=== PATIENT | male | born 1965 | race Caucasian/White ===

== ENCOUNTER → 2018-01-30 | Emergency (ER) | payer OTHER ==
[~2018-01-30] VITALS: Ht 175.3 cm; Wt 83.0 kg
[~2018-01-30] MED LIST: CHILDREN'S FLO5.9 ML; FENOFIBRATE145 MG; GLIPIZIDE ER10 MG; KOMBIGLYZE XR1 EAC1; NEXIUM40 M1; OMEGA 3 1,0001 EACH; PROTONIX40 MG PO; TOPROL XL50 M1; TRIUMEQ TABLET1 EACH; ZOVIRAX400 M1
== END | disposition home or self-care (01) ==
LOC: ER 20:05
DX: K52.9 Noninfective gastroenteritis and colitis, unspecified (principal); E86.0 Dehydration

== ENCOUNTER 2024-02-21 10:20 | Inpatient (IN) | payer OTHER ==
[~2024-02-21] VITALS: Ht 175.3 cm; Wt 90.7 kg
[2024-02-21] MEDS ORDERED: SYNTHROID50 MCG (11:02)
[2024-02-21] MEDS ORDERED: JENTADUETO 2.51 EAC2 (11:02)
[2024-02-21] MEDS ORDERED: ATORVASTATIN CA10 MG (11:02)
[2024-02-21] MEDS ORDERED: JARDIANCE25 MG (11:02)
[2024-02-21] MEDS ORDERED: NEURONTIN800 MG (11:02)
[2024-02-21] MEDS ORDERED: ALLERGY REL5 MG/5 ML (11:03)
[2024-02-21] MEDS ORDERED: VAZALORE81 MG (11:03)
[2024-02-21] MEDS ORDERED: LANTUS SOL100 UNIT/1 (11:03)
[2024-02-21] MEDS ORDERED: FEXMID7.5 MG (11:04)
[2024-02-21] MEDS ORDERED: ALLERGY RELIE15.8 ML (11:04)
[2024-02-21] MEDS ORDERED: LOSARTAN POTASS50 MG (11:04)
--- NOTE | 2024-02-21 11:04 | NUR ---
PACIENTE ALERTA Y ORIENTADO X3. EL MISMO REFIERE QUE DESDE EL IZZY DE ROSA PRESENTA DIARREAS. EN EL IZZY DE HOY REFIERE FADI PRESENTADO +10 DIARREAS Y TENER NAUSEAS.
[2024-02-21] MEDS ORDERED: FAMOTIDINE/PF 20 MG in 0.9 % SODIUM CHLORIDE 8 ML IV PUSH STA (11:19)
[2024-02-21] MEDS ORDERED: RINGERS SOLUTION,LACTATED 1,000 ML IV SCH (11:30)
[2024-02-21] MEDS ORDERED: DIPHENOXYLATE HCL/ATROPINE 1 UDTAB TABLET PO ONE (11:30)
[2024-02-21] MEDS ORDERED: ONDANSETRON HCL 2 MG/ML VIAL IV ONE ×2 (11:30→15:15)
[2024-02-21 11:42] LABS: MEAN CELL VOLUME 89.5 fL (80.0-100.00); MEAN CORPUSCULAR HGB CONC 34.1 g/dl (32.0-36.0); PLATELET COUNT 256 K/uL (150-450); RED BLOOD COUNT 6.38 M/uL (4.00-6.00); RED CELL DISTRIBUTION WIDTH 14.1 % (11.5-14.5)
[2024-02-21 11:43] LABS: MEAN CORPUSCULAR HEMOGLOBIN 30.4 pg (27.00-32.0)
[2024-02-21 11:44] LABS: HEMOGLOBIN 19.4 g/dL (13-16.00)
--- NOTE | 2024-02-21 11:53 | NUR ---
PTE ALERTA Y ORIENTADO X3. RN MORRIS EDUCA A PTE SOBRE TX MEDICO, EL MISMO REFIERE ENTENDER. SE KIT MUESTRAS DE LAB BAJO MEIDAS ASEPTICAS Y ADMINISTRA MEDICAMENTOS SANGEETA ORDEN MEDICA. SE HACE ENTREGA DE ENVASE PARA FECAL PENDIENTE.
[2024-02-21 12:22] LABS: ALBUMIN 4.8 gm/dL (3.4-5.0); BILIRUBIN TOTAL 1.56 mg/dL (0.3-1.2); CALCIUM 10.3 mg/dL (8.5-10.1); CREATININE SERUM 2.22 mg/dL (0.70-1.30); GFR 30.79; GLOBULINA 4.9 G/DL (2.4-3.5); POTASSIUM 3.97 mEq/L (3.5-5.1); TOTAL PROTEIN 9.7 gm/dL (6.4-8.2)
--- NOTE | 2024-02-21 15:00 | NUR ---
SE RECIBE PACIENTE MASCULINO ALERTA Y ORIENTADO X 3 ESFERAS EN CAMA EN COMPANIA DE FAMILIAR. PRESENTANDO BUEN PATRON RESPIRATORIO. RECIBIENDO IV'S R/L BAJANDO A 150ML/HR AREA DE VENOPUNCION FLOR DE EDEMA Y ERITEMA. PENDIENTE RESULTADOS DE LABORATORIOS. SE MANTIENE EN OBSERVACION POR CAMBIOS.
[2024-02-21 15:07] LABS: HEMATOCRIT 54.1 % (39.0-48.0); HEMOGLOBIN 18.3 g/dL (13-16.00); MEAN CELL VOLUME 87.9 fL (80.0-100.00); MEAN CORPUSCULAR HEMOGLOBIN 29.7 pg (27.00-32.0); MEAN CORPUSCULAR HGB CONC 33.7 g/dl (32.0-36.0); PLATELET COUNT 212 K/uL (150-450); RED BLOOD COUNT 6.16 M/uL (4.00-6.00); RED CELL DISTRIBUTION WIDTH 14.3 % (11.5-14.5)
[2024-02-21 15:39] LABS: CALCIUM 9.7 mg/dL (8.5-10.1); CREATININE SERUM 1.39 mg/dL (0.70-1.30); GFR 52.86; POTASSIUM 4.72 mEq/L (3.5-5.1)
[2024-02-21] MEDS ORDERED: METRONIDAZOLE/SODIUM CHLORIDE 100 ML IV SCH (19:02)
[2024-02-21] MEDS ORDERED: CEFTRIAXONE SODIUM 2,000 MG in 0.9 % SODIUM CHLORIDE 100 ML IV SCH (19:02)
[2024-02-21] MEDS ORDERED: FAMOTIDINE/PF 20 MG in 0.9 % SODIUM CHLORIDE 8 ML IV PUSH SCH (19:03)
[2024-02-21] MEDS ORDERED: DEXTROSE 50 % IN WATER 0.5 G/ML DISP.SYRIN IV PRN (19:15)
[2024-02-21] MEDS ORDERED: INSULIN LISPRO 1,000 UNIT/10 ML UNITS SUBCUTANEO PRN (19:15)
[2024-02-21] MEDS ORDERED: ACETAMINOPHEN 500 MG GEL..CAP PO PRN (19:15)
[2024-02-21] MEDS ORDERED: 0.9 % SODIUM CHLORIDE 1,000 ML IV SCH (19:15)
[2024-02-21] MEDS ORDERED: ONDANSETRON HCL 4 MG in 0.9 % SODIUM CHLORIDE 50 ML IV PRN (19:15)
[2024-02-21 21:27] LABS: INR 1.1; PARTIAL THROMBOPLASTIN TIME 35.1 SECONDS (22.0-34.0); PROTHROMBIN TIME 11.5 SECONDS (9.0-11.5)
[2024-02-21 21:30] LABS: MAGNESIUM 2.2 mg/dL (1.8-2.4)
[2024-02-21 21:32] LABS: C-REACTIVE PROTEIN 1.05 MG/DL (0.00-0.29)
[2024-02-21 21:43] LABS: PH,URINE 5.5 (5.0-8.0); URINE APPEARANCE Cloudy; URINE BILIRRUBIN Negative (NEGATIVE); URINE BLOOD Negative; URINE COLOR Dark Yellow; URINE LEUKOCYTE Negative; URINE NITRATE Negative; URINE PROTEIN 30 (NEGATIVE)
[2024-02-21 21:46] LABS: URINE BACTERIA 26.4 uL (0.0-1933); URINE EPITHELIAL CELLS 26.5 uL (0.0-38.8); URINE RBC 12.8 uL (0.0-20.8); URINE WBC 24.5 uL (0.0-23.2)
[2024-02-21 21:52] LABS: PROSTATIC SPECIFIC ANTIGEN 1.03 NG/ML (0.010-4.00); TSH 0.717 uIU/mL (0.358-3.74)
[2024-02-21 22:00] LABS: URINE GLUCOSE >=1000 MG/DL (NEGATIVE)
[2024-02-22] MEDS ORDERED: LEVOTHYROXINE SODIUM 50 MCG TABLET PO SCH (06:00)
[2024-02-22] MEDS ORDERED: ACETAMINOPHEN 500 MG GEL..CAP PO STA (08:21)
[2024-02-22] MEDS ORDERED: ACETAMINOPHEN 500 MG GEL..CAP PO PRN (08:30)
[2024-02-22] MEDS ORDERED: DEXTROSE 5 % AND 0.9 % NACL 1,000 ML IV SCH (08:30)
[2024-02-22] MEDS ORDERED: ATORVASTATIN CALCIUM 10 MG TABLET PO SCH (09:00)
[2024-02-22] MEDS ORDERED: CIPROFLOXACIN IN 5 % DEXTROSE 200 ML IV SCH (09:00)
[2024-02-22] MEDS ORDERED: LOSARTAN POTASSIUM 50 MG TABLET PO SCH (09:00)
[2024-02-22] MEDS ORDERED: METOPROLOL SUCCINATE 50 MG TAB.SR.24H PO SCH (09:00)
[2024-02-22] MEDS ORDERED: AZITHROMYCIN 500 MG in 0.9 % SODIUM CHLORIDE 250 ML IV SCH (09:00)
[2024-02-22] MEDS ORDERED: DEXTROSE 50 % IN WATER 0.5 G/ML VIAL IV PRN (14:30)
[2024-02-22] MEDS ORDERED: 0.9 % SODIUM CHLORIDE 1,000 ML IV SCH ×2 (15:30)
[2024-02-22] MEDS ORDERED: GABAPENTIN 800 MG TABLET PO SCH (17:00)
[2024-02-23] MEDS ORDERED: MULTIVIT INFUSN,ADULT 4,VIT K 10 ML VIAL IV SCH (09:00)
[2024-02-23 10:23] LABS: ALBUMIN 3.6 gm/dL (3.4-5.0); CALCIUM 8.5 mg/dL (8.5-10.1); CREATININE SERUM 0.73 mg/dL (0.70-1.30); GFR 111.14; POTASSIUM 4.03 mEq/L (3.5-5.1)
[2024-02-23 10:55] LABS: PHOSPHOROUS 1.6 mg/dL (2.5-4.9)
[2024-02-23] MEDS ORDERED: PANTOPRAZOLE SODIUM 40 MG/VIAL VIAL IV NR (11:00)
[2024-02-23] MEDS ORDERED: Cyanocobalamin/Mecobalamin 1 TAB.SL SL SCH (12:00)
[2024-02-23 12:40] LABS: CALCIUM 8.3 mg/dL (8.5-10.1); CREATININE SERUM 0.72 mg/dL (0.70-1.30); GFR 112.93; POTASSIUM 4.1 mEq/L (3.5-5.1)
[2024-02-23 12:48] LABS: MAGNESIUM 2.1 mg/dL (1.8-2.4)
[2024-02-23] MEDS ORDERED: GABAPENTIN 800 MG TABLET PO SCH (13:00)
[2024-02-23] MEDS ORDERED: POTASSIUM PHOS,M-BASIC-D-BASIC 18 MM in 0.9 % SODIUM CHLORIDE 250 ML IV NR ×2 (13:00→20:00)
[2024-02-23 13:04] LABS: PHOSPHOROUS 1.3 mg/dL (2.5-4.9)
[2024-02-23 13:05] LABS: HEMATOCRIT 46.9 % (39.0-48.0); HEMOGLOBIN 15.8 g/dL (13-16.00); MEAN CELL VOLUME 89.7 fL (80.0-100.00); MEAN CORPUSCULAR HEMOGLOBIN 30.2 pg (27.00-32.0); MEAN CORPUSCULAR HGB CONC 33.6 g/dl (32.0-36.0); PLATELET COUNT 167 K/uL (150-450); RED BLOOD COUNT 5.24 M/uL (4.00-6.00); RED CELL DISTRIBUTION WIDTH 14.3 % (11.5-14.5)
[2024-02-23] MEDS ORDERED: PANTOPRAZOLE SODIUM 40 MG/VIAL VIAL IV PUSH SCH (21:00)
[2024-02-24] MEDS ORDERED: POTASSIUM PHOS,M-BASIC-D-BASIC 18 MM in 0.9 % SODIUM CHLORIDE 250 ML IV NR (08:00)
[2024-02-24] MEDS ORDERED: LACTOBACILLUS ACIDOPHILUS 1 CAP CAP PO SCH (09:00)
[2024-02-24] MEDS ORDERED: POTASSIUM PHOS,M-BASIC-D-BASIC 3 MM/ML VIAL IV SCH (13:00)
== END 2024-02-25 19:01 | disposition home or self-care (01) | DRG 977 ==
LOC: ER 10:21 → SEC-K 19:26 → MEDI 19:26
PROVIDERS: General Practice; Internal Medicine Nephrology; ADMIT Internal Medicine; ATTEND Internal Medicine
PROC: BW21ZZZ Computerized Tomography (CT Scan) of Abdomen and Pelvis (ICD-10-PCS; principal; 2024-02-21)
DX: K52.9 Noninfective gastroenteritis and colitis, unspecified (principal); B20 Human immunodeficiency virus [HIV] disease; K56.600 Partial intestinal obstruction, unspecified as to cause; N17.9 Acute kidney failure, unspecified; E11.9 Type 2 diabetes mellitus without complications; Z79.4 Long term (current) use of insulin; E03.9 Hypothyroidism, unspecified